=== PATIENT | male | born 1960 | race Asian ===

== ENCOUNTER 2017-04-21 12:58 | Emergency (ER) | payer OTHER ==
[~2017-04-21] VITALS: Ht 172.7 cm; Wt 22.7 kg
[2017-04-21] MEDS ORDERED: PERCOCET 5/31 TABLET PO (17:40)
[2017-04-21 17:58] VITALS: BP 134/94
== END 2017-04-21 18:00 | disposition home or self-care (01) ==
LOC: EME 12:58
PROC: 2W3MX1Z Immobilization of Left Lower Extremity using Splint (ICD-10-PCS; principal; 2017-04-21)
DX: S92.002A Unspecified fracture of left calcaneus, initial encounter for closed fracture (principal); W17.89XA Other fall from one level to another, initial encounter
CPT/HCPCS: 73610; 73650; 73700; 99281; 99284